=== PATIENT | male | born 1930 | race Caucasian/White ===

== ENCOUNTER 2018-02-10 15:42 | Inpatient (IN) | payer MEDICARE, BC ==
[2018-02-10] MEDS: NS 500 ML IV ×2 (16:25→18:04)
[2018-02-10 16:38] LABS: BASO % 0.5 % (0.0-1.0); EOS # 0.2 10^3/uL (0.0-0.50); EOS % 2.8 % (0.0-3.0); HEMATOCRIT 31.5 % (42.0-52.0); HEMOGLOBIN 9.9 g/dl (13.5-17.5); IMMATURE GRANULOCYTE % 0.3 % (0-3.0); LYMPH # 1.1 10^3/uL (1.5-4.5); LYMPH % 17.6 % (24.0-44.0); MEAN CORPUSCULAR HEMOGLOBIN 27.8 pg (27.0-33.0); MEAN CORPUSCULAR HGB CONC 31.4 g/dl (32.0-36.5); MEAN CORPUSCULAR VOLUME 88.5 fl (80.0-96.0); MONO # 0.4 10^3/uL (0.0-0.8); MONO % 6.4 % (0.0-5.0); NEUTROPHILS # 4.7 10^3/uL (1.8-7.7); NEUTROPHILS % 72.4 % (36.0-66.0); PLATELET COUNT, AUTOMATED 237 10^3/uL (150-450); RED BLOOD COUNT 3.56 10^6/uL (4.30-6.10); RED CELL DISTRIBUTION WIDTH 14.8 % (11.5-14.5); WHITE BLOOD COUNT 6.4 10^3/uL (4.0-10.0)
[2018-02-10 16:54] LABS: ALBUMIN 3.4 GM/DL (3.2-5.2); ALBUMIN/GLOBULIN RATIO 0.94 (1.00-1.93); ALKALINE PHOSPHATASE 62 U/L (45-117); ALT/SGPT 16 U/L (12-78); ANION GAP 5 MEQ/L (8-16); AST/SGOT 19 U/L (7-37); BILIRUBIN,DIRECT 0.1 MG/DL (0.0-0.2); BILIRUBIN,TOTAL 0.3 MG/DL (0.2-1.0); BLOOD UREA NITROGEN 24 MG/DL (7-18); CALCIUM LEVEL 8.4 MG/DL (8.8-10.2); CARBON DIOXIDE LEVEL 27 MEQ/L (21-32); CHLORIDE LEVEL 111 MEQ/L (98-107); CPK CREATINE PHOSPHOKINASE 72 U/L (39-308); CREATININE FOR GFR 0.86 MG/DL (0.70-1.30); FREE T4 0.88 NG/DL (0.76-1.46); GLOMERULAR FILTRATION RATE > 60.0 (>35); GLUCOSE, FASTING 86 MG/DL (70-100); POTASSIUM SERUM 4.5 MEQ/L (3.5-5.1); SODIUM LEVEL 143 MEQ/L (136-145); TROPONIN I < 0.02 NG/ML (< 0.10)
[2018-02-10 16:59] LABS: CK-MB VALUE MASS 1.3 NG/ML (<3.6)
[2018-02-10] MEDS ORDERED: ONDANSETRON 4MG/2ML VIAL (J2405) IV (17:45)
[2018-02-10] MEDS ORDERED: ACETAMINOPHEN TAB 650MG DOSE (2X325MG) PO (17:45)
[2018-02-10 18:18] LABS: RETIC HEMOGLOBIN EQUIVALENT 31.4 pg (24-36); RETICULOCYTE # 56.6 10^9/L (17-77); RETICULOCYTE % 1.6 % (0.5-1.5)
[2018-02-10 18:20] LABS: FERRITIN 14 NG/ML (26-388); IRON (FE) 50 UG/DL (65-175); MAGNESIUM LEVEL 2.2 MG/DL (1.8-2.4); PERCENT SATURATION 12.6 % (19.7-50.0); TOTAL IRON BINDING CAPACITY 396 UG/DL (250-450)
[2018-02-10] MEDS ORDERED: NITROGLYCERIN 0.4 MG SUBL TABLET SL (18:45)
[2018-02-10] MEDS: APIXABAN 5 MG TAB (ELIQUIS) PO (19:34)
[2018-02-10] MEDS: NS 1,000 ML IV (19:34)
[2018-02-10] MEDS: ISOSORBIDE MON. (IMDUR) 60 MG XR TAB PO (19:35)
[2018-02-10] MEDS: DOCUSATE SODIUM 100 MG CAP PO (19:35)
[2018-02-10 19:37] LABS: NT-PRO BNP 575 PG/ML (<450)
[2018-02-10 20:45] LABS: INR 1.38; PROTHROMBIN TIME 17.3 SECONDS (12.4-14.5)
[2018-02-10 20:46] LABS: PARTIAL THROMBOPLASTIN TIME 34.7 SECONDS (26.8-37.9)
[2018-02-10] MEDS: ASCORBIC ACID 250 MG TAB PO (23:21)
[2018-02-10] MEDS: BRIMONIDINE 0.15% OPHTH SOLN 5 ML OU (23:21)
[2018-02-10] MEDS: FERROUS GLUCONATE 324 MG TAB PO (23:21)
[2018-02-11 00:14] LABS: CPK CREATINE PHOSPHOKINASE 63 U/L (39-308); TROPONIN I < 0.02 NG/ML (< 0.10)
[2018-02-11 00:15] LABS: CK-MB VALUE MASS 1.1 NG/ML (<3.6); MB/CK RELATIVE INDEX 1.74 (< OR =4)
[2018-02-11 04:42] LABS: BASO % 0.6 % (0.0-1.0); EOS # 0.2 10^3/uL (0.0-0.50); EOS % 3.5 % (0.0-3.0); HEMATOCRIT 29.6 % (42.0-52.0); HEMOGLOBIN 9.3 g/dl (13.5-17.5); IMMATURE GRANULOCYTE % 0.2 % (0-3.0); MEAN CORPUSCULAR HEMOGLOBIN 28.1 pg (27.0-33.0); MEAN CORPUSCULAR HGB CONC 31.4 g/dl (32.0-36.5); MEAN CORPUSCULAR VOLUME 89.4 fl (80.0-96.0); MONO # 0.4 10^3/uL (0.0-0.8); NEUTROPHILS # 2.7 10^3/uL (1.8-7.7); NEUTROPHILS % 50.7 % (36.0-66.0); PLATELET COUNT, AUTOMATED 208 10^3/uL (150-450); RED BLOOD COUNT 3.31 10^6/uL (4.30-6.10); RED CELL DISTRIBUTION WIDTH 14.9 % (11.5-14.5); WHITE BLOOD COUNT 5.4 10^3/uL (4.0-10.0)
[2018-02-11 04:54] LABS: ANION GAP 5 MEQ/L (8-16); BLOOD UREA NITROGEN 19 MG/DL (7-18); CALCIUM LEVEL 8.3 MG/DL (8.8-10.2); CARBON DIOXIDE LEVEL 28 MEQ/L (21-32); CHLORIDE LEVEL 111 MEQ/L (98-107); CREATININE FOR GFR 0.82 MG/DL (0.70-1.30); GLOMERULAR FILTRATION RATE > 60.0 (>35); GLUCOSE, FASTING 83 MG/DL (70-100); POTASSIUM SERUM 4.5 MEQ/L (3.5-5.1); SODIUM LEVEL 144 MEQ/L (136-145)
[2018-02-11] MEDS: NS 1,000 ML IV (09:49)
[2018-02-11] MEDS: OMEPRAZOLE 20 MG CAP PO (09:50)
[2018-02-11] MEDS: ISOSORBIDE MON. (IMDUR) 60 MG XR TAB PO (09:50)
[2018-02-11] MEDS: ASCORBIC ACID 250 MG TAB PO (09:50)
[2018-02-11] MEDS: SIMVASTATIN 40 MG TAB PO (09:50)
[2018-02-11] MEDS: DOCUSATE SODIUM 100 MG CAP PO (09:50)
[2018-02-11] MEDS: ASPIRIN 81 MG ENTERIC TAB PO (09:50)
[2018-02-11] MEDS: APIXABAN 5 MG TAB (ELIQUIS) PO (09:51)
[2018-02-11] MEDS: FERROUS GLUCONATE 324 MG TAB PO (09:52)
[2018-02-11] MEDS: BRIMONIDINE 0.15% OPHTH SOLN 5 ML OU (09:52)
[2018-02-11] MEDS ORDERED: LUMIGAN 0.01% OU (21:00)
[2018-02-12 08:07] LABS: FOLATE > 24.0 NG/ML (>5.4)
[2018-02-12 08:08] LABS: VITAMIN B12 LEVEL 317 PG/ML (247-911)
== END 2018-02-11 14:40 | disposition home or self-care (01) | DRG 641 ==
LOC: M ED 15:42 → M ED INP 19:21 → M PCU 23:07
DX: E86.0 Dehydration (principal); I48.0 Paroxysmal atrial fibrillation; I10 Essential (primary) hypertension; K21.9 Gastro-esophageal reflux disease without esophagitis; I25.10 Atherosclerotic heart disease of native coronary artery without angina pectoris; R55 Syncope and collapse; D50.9 Iron deficiency anemia, unspecified; Z95.5 Presence of coronary angioplasty implant and graft; Z85.46 Personal history of malignant neoplasm of prostate; Z90.49 Acquired absence of other specified parts of digestive tract; Z86.010 Personal history of colon polyps; Z79.01 Long term (current) use of anticoagulants; Z95.0 Presence of cardiac pacemaker; Z79.02 Long term (current) use of antithrombotics/antiplatelets; Z79.82 Long term (current) use of aspirin; Z79.899 Other long term (current) drug therapy

== ENCOUNTER 2018-02-20 07:20 | Emergency (ER) | payer MEDICARE, BC ==
[2018-02-20 08:31] LABS: HEMATOCRIT 33.9 % (42.0-52.0); HEMOGLOBIN 10.9 g/dl (13.5-17.5); MEAN CORPUSCULAR HEMOGLOBIN 28.7 pg (27.0-33.0); MEAN CORPUSCULAR HGB CONC 32.2 g/dl (32.0-36.5); MEAN CORPUSCULAR VOLUME 89.2 fl (80.0-96.0); PLATELET COUNT, AUTOMATED 222 10^3/uL (150-450); RED CELL DISTRIBUTION WIDTH 15.9 % (11.5-14.5)
[2018-02-20 08:37] LABS: INR 1.18; PROTHROMBIN TIME 15.2 SECONDS (12.4-14.5)
[2018-02-20 08:38] LABS: PARTIAL THROMBOPLASTIN TIME 35.5 SECONDS (26.8-37.9)
== END 2018-02-20 09:15 | disposition home or self-care (01) ==
LOC: M ED 07:20
DX: L76.82 Other postprocedural complications of skin and subcutaneous tissue (principal); D68.32 Hemorrhagic disorder due to extrinsic circulating anticoagulants; Z79.82 Long term (current) use of aspirin; Z79.899 Other long term (current) drug therapy
CPT/HCPCS: 85610

== ENCOUNTER 2018-11-09 13:24 | Emergency (ER) | payer MEDICARE, BC ==
[~2018-11-09] VITALS: Ht 167.6 cm; Wt 180.0 kg
[~2018-11-09 13:24] MED LIST: /ISOS5TA OR; ALPH0.156 OU; ASPI81TA85 PO; BIMA01SOL OU; CEPH500C; ECOT325T5; ELIQ5TAB PO; FERR325T16 PO; ISMO20TA; ISOS60TA2 PO; LOPR50TA OR; NITR0.4S; NITR4TASL SL; OMEP40CA2 PO; PLAV75TA2; PRILOSEC; SIMV40TA2 PO; TIMO0.5S; TOPR50TA; VICO5TAB OR; VYTO10TA5; VYTORIN; XALATAN
[2018-11-09 14:03] LABS: BASO # 0.1 10^3/uL (0.0-0.2); BASO % 0.8 % (0.0-1.0); EOS # 0.1 10^3/uL (0.0-0.50); EOS % 1.3 % (0.0-3.0); HEMATOCRIT 35.4 % (42.0-52.0); LYMPH # 1.5 10^3/uL (1.5-4.5); LYMPH % 24.2 % (24.0-44.0); MEAN CORPUSCULAR HEMOGLOBIN 29.8 pg (27.0-33.0); MEAN CORPUSCULAR HGB CONC 31.1 g/dl (32.0-36.5); MEAN CORPUSCULAR VOLUME 95.9 fl (80.0-96.0); MONO # 0.6 10^3/uL (0.0-0.8); MONO % 9.6 % (0.0-5.0); NEUTROPHILS # 3.9 10^3/uL (1.8-7.7); NEUTROPHILS % 63.6 % (36.0-66.0); PLATELET COUNT, AUTOMATED 258 10^3/uL (150-450); RED BLOOD COUNT 3.69 10^6/uL (4.30-6.10); WHITE BLOOD COUNT 6.1 10^3/uL (4.0-10.0)
[2018-11-09] MEDS ORDERED: ROSU20TA4 PO (14:09)
[2018-11-09 14:14] LABS: INR 1.44; PROTHROMBIN TIME 17.8 SECONDS (12.1-14.4)
[2018-11-09 14:32] LABS: ALT/SGPT 23 U/L (12-78); BILIRUBIN,TOTAL 0.6 MG/DL (0.2-1.0); BLOOD UREA NITROGEN 23 MG/DL (7-18); CALCIUM LEVEL 8.7 MG/DL (8.8-10.2); CARBON DIOXIDE LEVEL 26 MEQ/L (21-32); CHLORIDE LEVEL 108 MEQ/L (98-107); CPK CREATINE PHOSPHOKINASE 112 U/L (39-308); CREATININE FOR GFR 0.94 MG/DL (0.70-1.30); GLOMERULAR FILTRATION RATE > 60.0 (>35); GLUCOSE, FASTING 97 MG/DL (70-100); MB/CK RELATIVE INDEX 2.05 (< OR =4); POTASSIUM SERUM 4.5 MEQ/L (3.5-5.1); SODIUM LEVEL 140 MEQ/L (136-145)
[2018-11-09 14:33] LABS: ALBUMIN 3.9 GM/DL (3.2-5.2); BILIRUBIN,DIRECT 0.2 MG/DL (0.0-0.2); NT-PRO BNP 1229 PG/ML (<450); TROPONIN I 0.02 NG/ML (< 0.10)
--- NOTE | 2018-11-09 14:59 | REP ---
CHEST X-RAY: Two views. HISTORY: Dyspnea and cough. COMPARISON STUDY: February 10, 2018. FINDINGS: The patient is status post prior median sternotomy. Bipolar pacemaker is seen in the right heart. Mild cardiomegaly is observed. There is blunting of the right lateral and both posterior pleural angles indicating small quantities of pleural fluid. There is evidence of a hiatal hernia behind the heart unchanged. No acute infiltrate is seen. Left hemidiaphragm is somewhat elevated also unchanged. IMPRESSION: Cardiomegaly, prior sternotomy and pacemaker. Small bilateral pleural effusions. Hiatal hernia. No acute infiltrate. Electronically Signed by Rafael Hamilton MD 11/09/2018 03:40 P
[2018-11-09] MEDS ORDERED: FUROSEMIDE 40 MG/4 ML VIAL (J1940) IV ONE (15:30)
[2018-11-09 17:16] VITALS: BP 142/67
[2018-11-09] MEDS ORDERED: LASI20TA3 PO (17:16)
--- NOTE | 2018-11-09 18:02 | ECGEPIP ---
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
== END 2018-11-09 17:38 | disposition home or self-care (01) ==
LOC: M ED 13:24
DX: I50.30 Unspecified diastolic (congestive) heart failure (principal); I50.9 Heart failure, unspecified; R94.31 Abnormal electrocardiogram [ECG] [EKG]; Z95.0 Presence of cardiac pacemaker; I48.91 Unspecified atrial fibrillation; I25.10 Atherosclerotic heart disease of native coronary artery without angina pectoris; E66.2 Morbid (severe) obesity with alveolar hypoventilation; Z95.5 Presence of coronary angioplasty implant and graft; Z82.3 Family history of stroke; Z82.49 Family history of ischemic heart disease and other diseases of the circulatory system; I51.7 Cardiomegaly; K44.9 Diaphragmatic hernia without obstruction or gangrene; J90 Pleural effusion, not elsewhere classified; Z79.82 Long term (current) use of aspirin; Z79.01 Long term (current) use of anticoagulants; Z79.899 Other long term (current) drug therapy
CPT/HCPCS: 71046; 80048; 80076; 82550; 82553; 83880; 84443; 84484; 85025; 85610; 93005; 93041; 94760; 96374; 99285; J1940

== ENCOUNTER 2018-12-10 10:59 | Inpatient (IN) | payer MEDICARE, BC ==
[~2018-12-10] VITALS: Ht 170.2 cm; Wt 77.3 kg
[~2018-12-10 10:59] MED LIST changes: +LASI20TA3 PO; +ROSU20TA4 PO
[2018-12-10 11:30] LABS: BASO % 0.6 % (0.0-1.0); EOS # 0.1 10^3/uL (0.0-0.50); EOS % 0.9 % (0.0-3.0); HEMATOCRIT 22.7 % (42.0-52.0); LYMPH # 1.1 10^3/uL (1.5-4.5); LYMPH % 17.7 % (24.0-44.0); MEAN CORPUSCULAR HEMOGLOBIN 28.3 pg (27.0-33.0); MEAN CORPUSCULAR HGB CONC 30.8 g/dl (32.0-36.5); MEAN CORPUSCULAR VOLUME 91.9 fl (80.0-96.0); MONO # 0.4 10^3/uL (0.0-0.8); MONO % 5.7 % (0.0-5.0); NEUTROPHILS # 4.7 10^3/uL (1.8-7.7); NEUTROPHILS % 74.8 % (36.0-66.0); PLATELET COUNT, AUTOMATED 205 10^3/uL (150-450); RED BLOOD COUNT 2.47 10^6/uL (4.30-6.10); WHITE BLOOD COUNT 6.3 10^3/uL (4.0-10.0)
[2018-12-10 11:40] LABS: ABG BASE EXCESS -0.3 (-2.0-2.0); ABG HCO3 22.7 MEQ/L (22.0-26.0); ABG O2 SATURATION 96.7 % (95.0-99.0); ABG PARTIAL PRESSURE CO2 30.9 mmHg (35.0-45.0); ABG PARTIAL PRESSURE O2 91.7 mmHg (75.0-100.0); ABG STANDARD HCO3 24.2 MEQ/L (22.0-26.0); ABG TOTAL CO2 23.7 MEQ/L (23.0-31.0); ABG pH (ARTERIAL) 7.484 UNITS (7.350-7.450)
--- NOTE | 2018-12-10 11:56 | REP ---
Chest one-view HISTORY: Cough Comparison: 11/09/2018 The lungs are clear. The cardiac silhouette is enlarged. The pulmonary vasculature is normal in appearance. A cardiac pacemaker is present. Impression: Cardiomegaly. Electronically Signed by Yonas Wang MD 12/10/2018 11:47 A
[2018-12-10 12:00] LABS: INFLUENZA A AMPLIFICATION NEGATIVE (NEGATIVE); INFLUENZA B AMPLIFICATION NEGATIVE (NEGATIVE)
--- NOTE | 2018-12-10 12:19 | REP ---
CT Head without contrast HISTORY: Syncope COMPARISON: MR 09/13/2010 Areas of decreased attenuation are present in the periventricular white matter. This represents small-vessel ischemic disease. There is no intraparenchymal hemorrhage, acute infarct, mass or midline shift. The ventricular system and cortical sulci are dilated consistent with mild volume loss. There is no extra cerebral collection. There is no fracture. The visualized sinuses are clear. Soft tissue swelling is present overlying the right parietal bone at the vertex. Surgical ari are present in the the soft tissue overlying the right parietal bone at the vertex. IMPRESSION: 1. Small vessel ischemic disease. 2. Mild volume loss. Electronically Signed by Yonas Wang MD 12/10/2018 12:10 P
[2018-12-10 12:23] LABS: ALBUMIN 3.4 GM/DL (3.2-5.2); ALT/SGPT 18 U/L (12-78); BILIRUBIN,DIRECT 0.1 MG/DL (0.0-0.2); BILIRUBIN,TOTAL 0.4 MG/DL (0.2-1.0); BLOOD UREA NITROGEN 22 MG/DL (7-18); CALCIUM LEVEL 8.3 MG/DL (8.8-10.2); CARBON DIOXIDE LEVEL 26 MEQ/L (21-32); CHLORIDE LEVEL 105 MEQ/L (98-107); CPK CREATINE PHOSPHOKINASE 136 U/L (39-308); CREATININE FOR GFR 1.05 MG/DL (0.70-1.30); GLOMERULAR FILTRATION RATE > 60.0 (>35); GLUCOSE, FASTING 140 MG/DL (70-100); MB/CK RELATIVE INDEX 1.47 (< OR =4); POTASSIUM SERUM 3.6 MEQ/L (3.5-5.1); SODIUM LEVEL 140 MEQ/L (136-145); THYROXINE (T4) 6.3 UG/DL (4.5-12.0); TOTAL PROTEIN 6.1 GM/DL (6.4-8.2); TROPONIN I 0.03 NG/ML (< 0.10)
[2018-12-10] MEDS ORDERED: VITMTA PO (13:11)
[2018-12-10] MEDS ORDERED: FURO20TA2 PO (13:11)
[2018-12-10] MEDS ORDERED: CO Q10CA PO (13:11)
[2018-12-10] MEDS ORDERED: NS 1,000 ML IV ONE (13:15)
[2018-12-10 16:11] LABS: HEMATOCRIT 24.2 % (42.0-52.0); HEMOGLOBIN 7.6 g/dl (13.5-17.5)
[2018-12-10] MEDS ORDERED: ACETAMINOPHEN TAB 650MG DOSE (2X325MG) PO PRN (16:30)
[2018-12-10] MEDS ORDERED: NITROGLYCERIN 0.4 MG SUBL TABLET SL PRN (16:30)
--- NOTE | 2018-12-10 17:08 | HPEPDOC ---
[facility] Medical History & Physical Date of Admission Dec 10, 2018 Other Provider Clive Abraham MD Attending Physician: GISELLE WEN MD History and Physical CHIEF COMPLAINT: Near syncope HISTORY OF PRESENT ILLNESS: Octavio Pennington is an 88-year-old white male with a significant cardiac history for coronary artery bypass graft, coronary artery stents x6, paroxysmal atrial fibrillation on Eliquis, hypertension, prostatic cancer status post resection, large colon polyp, status post partial colon resection, and GERD who presents to the emergency room following an episode of syncope. Patient suffered a scalp laceration 3 days ago while he was in [place]. Patient states that he was using the bathroom and attempting to change the toilet paper roll and he accidentally hits the top of his head on the corner of a granite countertop. He was brought to a nearby hospital where he received 12 ari to close his laceration. Patient returned home to [place] yesterday evening. This morning, patient stated that he felt very fatigued. Concerned, he presented to the emergency department for further evaluation and management. In the emergency department patient was afebrile. CBC indicated a hemoglobin of 7.0 and a hematocrit of 22.7. He was given 2 units of packed red blood cells. Lactic acid was 2.4, follow-up 4 hours later was 1.2. Influenza is negative. Blood cultures pending. The hospitalist team was consulted and will admit the patient for further management and observation. PAST MEDICAL HISTORY: 1. Coronary artery disease status post stents x6 and coronary artery bypass graft 2. Sick sinus syndrome status post pacemaker placement 02/03/2015, [employer] Gianluca MAYA 3. His story of prostate cancer, status post resection 4. History of GERD 5. History of glaucoma 6. Paroxysmal atrial fibrillation on Eliquis PAST SURGICAL HISTORY: 1. Coronary artery bypass graft 2. Cardiac stents x6 3. Pacemaker placement 4. Prostatectomy 5. Internal hernia repair x2 6. Appendectomy 7. Long polyp resection, partial colectomy, reanastomosis SOCIAL HISTORY: Marital status: Employment: retired Tobacco use: denies a history of smoking ETOH: Admits to occasional drinking, 1-2 beers Illicit drug use: Denied illicit drug use Other relevant social factors: Caffeine use daily FAMILY HISTORY: Father: , stroke and heart disease Siblings: Brother, , heart disease. Sister, , colon cancer. ALLERGIES: Please see below. REVIEW OF SYSTEMS: CONSTITUTIONAL: Complains of 2 day history of fatigue. Denies fevers, chills, night sweats, trouble sleeping, weight changes. HEENT: Complains of dull, aching pain around his head laceration. Denies other headaches, changes in vision, ear pain. CARDIOVASCULAR: Complains of occasional palpitations. Denies chest pain/pressur e. RESPIRATORY: Denies being short of breath, coughing, wheezing GASTROINTESTINAL: Denies N/V, abdominal pain, reflux, diarrhea, constipation, blood in stools GENITOURINARY: Denies difficulty with urination SKIN: Denies new or changing skin lesions. MUSCULOSKELETAL: Denies muscle aches or pains NEUROLOGICAL: Denies focal deficits, weakness, numbness or tingling PSYCHIATRIC: Denies depressive/anxious symptoms HOME MEDICATIONS: Please see below. PHYSICAL EXAMINATION: VITAL SIGNS: Temperature 98.1, pulse 67, respiratory rate 18, blood pressure 144/65, pulse oximetry 97% on room air. GENERAL APPEARANCE: Alert and oriented to person, place and time, able to participate in his care. HEENT: 7 cm laceration noted on the patient's crown, 12 ari counted. Otherwise nontraumatic nonicteric pupils are equal round reactive to light, EOMI CARDIOVASCULAR: Regular rate and rhythm, PVCs noted on monitor. Normal S1 and S2. No murmurs LUNGS: Clear to auscultation bilaterally ABDOMEN: Nontender, soft, no masses MUSCULOSKELETAL: Moves extremities equally, strength 5 out of 5 EXTREMITIES: Peripheral pulses 2+ in both upper and lower extremities, no cyanosis NEUROLOGICAL: No facial weakness, dysarthria, muscle weakness, focal neurologic deficits PSYCHIATRIC: Mood and affect appropriate LABORATORY DATA: See below. IMAGING: CXR: Cardiomegaly noted Head CT: Small vessel ischemic disease, mild volume loss MICROBIOLOGY: Please see below. ASSESSMENT: 87-year-old male with multiple comorbidities, presents with symptomatic anemia status post scalp laceration 2 days ago. 1. Symptomatically anemia - Head CT was negative for any acute disease. Patient's vitals are stable. Fecal occult was negative. Patient to receive 2 units of packed red blood cells. - H&H every 8 hours. - Monitor for symptomatic improvement. - Hold patient's home eliquis, aspirin and isosorbide. - Continue Lasix 20 mg by mouth daily 2. Paroxysmal atrial fibrillation - Hold patient's home eliquis 3. Coronary artery disease - Continue on home statin 4. Hyperlipidemia - Continue patient's home rosuvastatin 20 mg 5. Sinus syndrome status post pacemaker 7. GERD - Continue on home omeprazole 40 mg DVT prophylaxis: TEDs and Sequentials Vital Signs Vital Signs Date Time Temp Pulse Resp B/P (MAP) Pulse Ox O2 Delivery O2 Flow Rate FiO2 12/10/18 16:15 68 18 131/65 (87) 93 Room Air 12/10/18 11:09 98.1 Laboratory Data Labs 24H Laboratory Tests 2 12/10/18 11:17: Immature Granulocyte % (Auto) 0.3, White Blood Count 6.3, Red Blood Count 2.47L, Hemoglobin 7.0L, Hematocrit 22.7L, Mean Corpuscular Volume 91.9, Mean Corpuscular Hemoglobin 28.3, Mean Corpuscular Hemoglobin Concent 30.8L, Red Cell Distribution Width 13.7, Platelet Count 205, Neutrophils (%) (Auto) 74.8H, Lymphocytes (%) (Auto) 17.7L, Monocytes (%) (Auto) 5.7H, Eosinophils (%) (Auto) 0.9, Basophils (%) (Auto) 0.6, Neutrophils # (Auto) 4.7, Lymphocytes # (Auto) 1.1L, Monocytes # (Auto) 0.4, Eosinophils # (Auto) 0.1, Basophils # (Auto) 0.0, Nucleated Red Blood Cells % (auto) 0.0, Anion Gap 9, Glomerular Filtration Rate > 60.0, Lactic Acid Level 2.4*H, Calcium Level 8.3L, Aspartate Amino Transf (AST/SGOT) 20, Alanine Aminotransferase (ALT/SGPT) 18, Alkaline Phosphatase 61, Total Bilirubin 0.4, Direct Bilirubin 0.1, Total Creatine Kinase 136, Creatine Kinase MB 2.0, Creatine Kinase MB Relative Index 1.47, Troponin I 0.03, Total Protein 6.1L, Albumin 3.4, Albumin/Globulin Ratio 1.26, Thyroid Stimulating Hormone (TSH) 1.470, Thyroxine (T4) 6.3 12/10/18 11:23: Influenza Type A (RT-PCR) NEGATIVE, Influenza Type B (RT-PCR) NEGATIVE 12/10/18 11:25: Blood Gas Bicarbonate Standard 24.2, Arterial Blood pH 7.484H, Arterial Blood Partial Pressure CO2 30.9L, Arterial Blood Partial Pressure O2 91.7, Arterial Blood Total CO2 23.7, Arterial Blood HCO3 22.7, Arterial Blood Base Excess -0.3, Arterial Blood Oxygen Saturation 96.7 12/10/18 15:58: Lactic Acid Followup at 4 Hours 1.2 CBC/BMP Laboratory Tests 12/10/18 11:17 Red Blood Count 2.47 L, Mean Corpuscular Volume 91.9, Mean Corpuscular Hemoglobin 28.3, Mean Corpuscular Hemoglobin Concent 30.8 L, Red Cell Distribution Width 13.7, Neutrophils (%) (Auto) 74.8 H, Lymphocytes (%) (Auto) 17.7 L, Monocytes (%) (Auto) 5.7 H, Eosinophils (%) (Auto) 0.9, Basophils (%) (Auto) 0.6, Neutrophils # (Auto) 4.7, Lymphocytes # (Auto) 1.1 L, Monocytes # (Auto) 0.4, Eosinophils # (Auto) 0.1, Basophils # (Auto) 0.0 12/10/18 15:58 Microbiology Microbiology 12/10/18 Blood Culture, Received Pending 12/10/18 Blood Culture, Received Pending Home Medications Scheduled Apixaban Base (Eliquis) 5 Mg Tab, 5 MG PO BID Aspirin (Aspir-81) 81 Mg Tab, 81 MG PO DAILY Bimatoprost (Lumigan) 50 Drop/2.5 Ml Dipika, 1 DROP OU QHS Brimonidine Tartrate 0.15% (Alphagan P) 0.15 % Dipika, 1 DROP OU TID Coenzyme Q10 (Co Q 10) 10 Mg Cap, 10 MG PO QHS Furosemide (Furosemide) 20 Mg Tab, 20 MG PO DAILY Isosorbide Mononitrate (Isosorbide Mononitrate ER) 60 Mg Tab, 60 MG PO BID Multivitamins *[facility] STOCKED* (Thera M Plus *[facility] STOCKED*) 1 Tab Tab, 1 TAB PO DAILY Omeprazole (Omeprazole) 40 Mg Cap, 40 MG PO DAILY Rosuvastatin Calcium (Rosuvastatin Calcium) 20 Mg Tab, 20 MG PO DAILY Scheduled PRN Nitroglycerin (Nitrostat) 0.4 Mg Subl, 0.4 MG SL NITRO PRN for CHEST PAIN Allergies Coded Allergies: No Known Allergies (Verified , 09/30/06) GME ATTESTATION GME ATTESTATION My faculty preceptor for this patient encounter was physically present during the encounter and was fully available. All aspects of the patient interview, exa mination, medical decision making process, and medical care plan development were reviewed and approved by the faculty preceptor. The faculty preceptor is aware and concurs with the plan as stated in the body of this note and will attest to such by his/her cosignature. GME ATTESTATION GME ATTESTATION My faculty preceptor for this patient encounter was physically present during the encounter and was fully available. All aspects of the patient interview, examination, medical decision making process, and medical care plan development were reviewed and approved by the faculty preceptor. The faculty preceptor is aware and concurs with the plan as stated in the body of this note and will attest to such by his/her cosignature. WILLIAM SPRING DO Dec 10, 2018 17:08
[2018-12-10] MEDS ORDERED: APIXABAN 5 MG TAB (ELIQUIS) PO SCH (21:00)
[2018-12-10] MEDS ORDERED: ISOSORBIDE MON. (IMDUR) 60 MG XR TAB PO SCH (21:00)
[2018-12-10 22:00] VITALS: BP 119/74
--- NOTE | 2018-12-10 22:00 | ECGEPIP ---
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
[2018-12-10] MEDS: BRIMONIDINE 0.15% OPHTH SOLN 5 ML OU SCH (22:04)
[2018-12-10 22:22] LABS: HEMATOCRIT 25.3 % (42.0-52.0)
[2018-12-11 06:00] VITALS: BP 160/74
[2018-12-11 06:03] LABS: HEMATOCRIT 26.1 % (42.0-52.0); HEMOGLOBIN 8.2 g/dl (13.5-17.5)
[2018-12-11] MEDS ORDERED: ASPIRIN 81 MG ENTERIC TAB PO SCH (09:00)
[2018-12-11] MEDS: ROSUVASTATIN 10 MG TAB (CRESTOR) PO SCH (09:13)
[2018-12-11] MEDS: OMEPRAZOLE 20 MG CAP PO SCH (09:13)
[2018-12-11] MEDS: MULTIVITAMINS/MINERALS THERAP 1 TAB PO SCH (09:13)
[2018-12-11] MEDS: BRIMONIDINE 0.15% OPHTH SOLN 5 ML OU SCH ×3 (09:14→20:54)
[2018-12-11] MEDS: FUROSEMIDE 20 MG TAB PO SCH (09:14)
--- NOTE | 2018-12-11 10:30 | IPNPDOC ---
Text Note Date of Service The patient was seen on 12/11/18. NOTE Subjective: Vision was interviewed and examined at bedside this morning. He reports difficulty sleeping last night due to hospital conditions. He denies any acute complaints. He has been up and out of bed in order to use the bathroom. He says that he is not felt dizzy and reports subjective improvement in his overall energy level compared to his initial presentation yesterday. Denies any syncopal episodes or dyspnea. He denies chest pain/pressure. He does report occasional palpitations (has been normal for him). Patient reports his last cardiac surgery was a number of years ago in which case he had cardiac displaced. He is moving his bowels and urinating without difficulty. No blood in his stool. He denies any leg pain or swelling. Objective: Vitals: (see below) GENERAL: No acute distress, laying comfortably in bed, alert and oriented, able to participate in his care HEENT: Scalp laceration with 12 ari noted. Wound is well approximated, no signs of infection, no bleeding or drainage. PERRLA, EOMI, no conjunctival pallor, moist mucous membranes. NECK: No JVD or lymphadenopathy CARDIAC: Regular rate with occasional PVCs. Normal S1-S2, systolic murmur 2/6 appreciated at fourth intercostal space on the left, no radiation. PULM: Clear to auscultation b/l. No wheezing, rhonchi ABD: NT/ND + BS MSK: Moves all extremities equally EXTREMITIES: No lower extremity edema or cyanosis. Cap refill less than 2 seconds NEURO: No facial droop or asymmetry, no neurologic deficits Labs (see below) Hgb/Hct at presentation (12/10/18): 7/22.7 Hgb/Hct (12/11/18): 8.2/26.1 Images: Head CT (12/10/18): Small vessel ischemic disease and Mild volume loss. CXR: (12/10/18): Cardiomegaly Assessment/Plan Mr. Pennington is an 88-year-old gentleman who reportedly suffered a head laceration with large volume blood loss 12/08/18. He presented to the emergency department after an episode of dizziness in his home. He has a past medical history significant for CAD S/P6 stent placement and coronary artery bypass graft, atrial fibrillation with pacemaker placed in 2014, prostate cancer S/P resection, and paroxysmal atrial fibrillation to coagulate with aliquots 1. Symptomatic anemia -Patient reports subjective resolution of his dizziness and fatigue. Head CT was negative for intracranial bleed. Patient was transfused 2 units of packed red blood cells, H&H brought up from 04/22.7 to 8.2/26.1. -Will resume aspirin and Eliquis -Patient is being continued on home Lasix 20 mg by mouth dose -Trend H/H every 12 hours 2. Paroxysmal atrial fibrillation -Will resume patient's home dose of Eliquis and aspirin 3. Coronary artery disease and history of hyperlipidemia -Patient is receiving his home rosuvastatin 20 mg 4. Sick sinus syndrome S/P pacemaker placement 5. GERD -She has continued on his home dose of omeprazole 40 mg DVT prophy: TEDs and Sequentials Disp: Plan to discharge following 24 hours of stable H/H s/p re-start eliquis VS,Fishbone, I+O VS, Fishbone, I+O Laboratory Tests 12/10/18 11:17 Red Blood Count 2.47 L, Mean Corpuscular Volume 91.9, Mean Corpuscular Hemoglobin 28.3, Mean Corpuscular Hemoglobin Concent 30.8 L, Red Cell Distribution Width 13.7, Neutrophils (%) (Auto) 74.8 H, Lymphocytes (%) (Auto) 17.7 L, Monocytes (%) (Auto) 5.7 H, Eosinophils (%) (Auto) 0.9, Basophils (%) (Auto) 0.6, Neutrophils # (Auto) 4.7, Lymphocytes # (Auto) 1.1 L, Monocytes # (Auto) 0.4, Eosinophils # (Auto) 0.1, Basophils # (Auto) 0.0 12/10/18 15:58 12/10/18 22:13 12/11/18 05:24 Vital Signs Date Time Temp Pulse Resp B/P (MAP) Pulse Ox O2 Delivery O2 Flow Rate FiO2 12/11/18 06:00 98.1 83 18 160/74 (102) 100 12/10/18 16:15 Room Air I&O- Last 24 Hours up to 6 AM 12/11/18 06:00 Intake Total 1265 ml Balance 1265 ml GME ATTESTATION GME ATTESTATION My faculty preceptor for this patient encounter was physically present during the encounter and was fully available. All aspects of the patient interview, examination, medical decision making process, and medical care plan development were reviewed and approved by the faculty preceptor. The faculty preceptor is aware and concurs with the plan as stated in the body of this note and will attest to such by his/her cosignature. ATTENDING NOTE I, Nolan Pedraza, have both independently examined this patient as well as revie wed the documentation. I have discussed in detail with the resident the findings and plan of treatment as documented in the residents documentation. I will continue to follow the patient and offer further guidance to the patients care as necessary during this hospital stay. WILLIAM SPRING DO Dec 11, 2018 10:30 NOLAN PEDRAZA MD Dec 11, 2018 18:51
[2018-12-11] MEDS: APIXABAN 5 MG TAB (ELIQUIS) PO SCH ×2 (12:14→20:52)
[2018-12-11] MEDS: ASPIRIN 81 MG ENTERIC TAB PO SCH (12:14)
[2018-12-11 14:00] VITALS: BP 137/61
[2018-12-11 19:26] LABS: HEMATOCRIT 29.6 % (42.0-52.0); HEMOGLOBIN 9.3 g/dl (13.5-17.5)
[2018-12-11 22:00] VITALS: BP 134/70
[2018-12-12 06:00] VITALS: BP 136/66
[2018-12-12 08:26] LABS: BASO % 0.6 % (0.0-1.0); EOS # 0.1 10^3/uL (0.0-0.50); EOS % 2.2 % (0.0-3.0); HEMATOCRIT 28.1 % (42.0-52.0); LYMPH # 1.5 10^3/uL (1.5-4.5); LYMPH % 28.6 % (24.0-44.0); MEAN CORPUSCULAR HEMOGLOBIN 29.2 pg (27.0-33.0); MEAN CORPUSCULAR VOLUME 91.2 fl (80.0-96.0); MONO # 0.4 10^3/uL (0.0-0.8); MONO % 7.8 % (0.0-5.0); NEUTROPHILS # 3.3 10^3/uL (1.8-7.7); NEUTROPHILS % 60.6 % (36.0-66.0); PLATELET COUNT, AUTOMATED 209 10^3/uL (150-450); RED BLOOD COUNT 3.08 10^6/uL (4.30-6.10); WHITE BLOOD COUNT 5.4 10^3/uL (4.0-10.0)
[2018-12-12 08:49] LABS: ALBUMIN 3.1 GM/DL (3.2-5.2); ALT/SGPT 14 U/L (12-78); BILIRUBIN,TOTAL 0.4 MG/DL (0.2-1.0); BLOOD UREA NITROGEN 21 MG/DL (7-18); CALCIUM LEVEL 8.5 MG/DL (8.8-10.2); CARBON DIOXIDE LEVEL 28 MEQ/L (21-32); CHLORIDE LEVEL 108 MEQ/L (98-107); CREATININE FOR GFR 0.87 MG/DL (0.70-1.30); GLOMERULAR FILTRATION RATE > 60.0 (>35); GLUCOSE, FASTING 94 MG/DL (70-100); MAGNESIUM LEVEL 2.2 MG/DL (1.8-2.4); POTASSIUM SERUM 3.8 MEQ/L (3.5-5.1); SODIUM LEVEL 141 MEQ/L (136-145); TOTAL PROTEIN 6.3 GM/DL (6.4-8.2)
[2018-12-12] MEDS: ASPIRIN 81 MG ENTERIC TAB PO SCH (08:54)
[2018-12-12] MEDS: BRIMONIDINE 0.15% OPHTH SOLN 5 ML OU SCH (08:54)
[2018-12-12] MEDS: FUROSEMIDE 20 MG TAB PO SCH (08:54)
[2018-12-12] MEDS: APIXABAN 5 MG TAB (ELIQUIS) PO SCH (08:54)
[2018-12-12] MEDS: OMEPRAZOLE 20 MG CAP PO SCH (08:54)
[2018-12-12] MEDS: ROSUVASTATIN 10 MG TAB (CRESTOR) PO SCH (08:54)
[2018-12-12] MEDS: MULTIVITAMINS/MINERALS THERAP 1 TAB PO SCH (08:54)
--- NOTE | 2018-12-12 17:43 | DS.PDOC ---
Discharge Summary General Date of Admission Dec 10, 2018 at 14:33 Date of Discharge 12/12/2018 Discharge Summary PROCEDURES PERFORMED DURING STAY: [None]. ADMITTING DIAGNOSES / DISCHARGE DIAGNOSES: Symptomatic anemia - likely 2/2 acute blood loss anemia - likely 2/2 head trauma / laceration after hitting granite countertop Head laceration after hitting granite countertop Paroxysmal atrial fibrillation Coronary artery disease / DLP SSS s/p PM GERD DVT prophylaxis COMPLICATIONS/CHIEF COMPLAINT: Dizziness / Light-headedness HISTORY OF PRESENT ILLNESS: Mr. Pennington is an 88-year-old gentleman with a PMHx of Paroxysmal A. fib (on Eliquis), CAD, DLP, SSS s/p PM and GERD who reportedly suffered a head laceration with large volume blood loss 12/08/18. He presented to the emergency department after an episode of dizziness in his home. He has a past medical history significant for CAD S/P6 stent placement and coronary artery bypass graft, atrial fibrillation with pacemaker placed in 2014, prostate cancer S/P resection, and paroxysmal atrial fibrillation to coagulate with aliquots HOSPITAL COURSE: Symptomatic anemia - likely 2/2 acute blood loss anemia - likely 2/2 head trauma / laceration after hitting granite countertop - Currently has had resolution of his symptoms - Physical without any significant findings - No evidence of gross bleeding on physical exam - Hemoglobin has improved appropriately after transfusion and has remained stable - Has been resumed on aspirin and Eliquis - Will have outpatient provider follow-up with primary care provider Head laceration after hitting granite countertop - Patient with that this has occurred on Monday of last week; he visited the [facility] room in [place] - Received 12 ari to the area; he was controlled - Had indicated that he had lost a significant amount of blood at that time - Will have outpatient follow-up with primary care provider for staple removal Paroxysmal atrial fibrillation - c/w Eliquis and ASA Coronary artery disease / DLP - c/w rosuvastatin SSS s/p PM GERD - c/w Omeprazole DVT prophylaxis - c/w SCDs / Eliquis DISCHARGE MEDICATIONS: Please see below. ALLERGIES: Please see below. PHYSICAL EXAMINATION ON DISCHARGE: Vitals (See below) General: Lying in bed, no acute distress, comfortable, AAOx3 HEENT: Laceration with 12 ari; no evidence of acute bleeding CVS: RRR, +S1S2 Lungs: Fair air entry b/l, no evidence of wheezing / rhonchi / rales Abdomen: Soft, non-distended, non-tender Extremities: - Edema, - Calf tenderness LABORATORY DATA: Please see below. ACTIVITY: [As tolerated]. DISCHARGE PLAN: Follow up with Dr. Gianfranco Abraham within 7 day Remain compliant with treatment plan and medications Return to the ER if you experience any problems DISPOSITION: Home DISCHARGE CONDITION: [Stable]. TIME SPENT ON DISCHARGE: Greater than [35] minutes. Vital Signs/I&Os Vital Signs Date Time Temp Pulse Resp B/P (MAP) Pulse Ox O2 Delivery O2 Flow Rate FiO2 12/12/18 06:00 97.9 64 18 136/66 (89) 92 12/10/18 16:15 Room Air I&O- Last 24 Hours up to 6 AM 12/12/18 06:00 Intake Total 900 ml Balance 900 ml Laboratory Data Labs 24H Laboratory Tests 2 12/12/18 07:31: Immature Granulocyte % (Auto) 0.2, White Blood Count 5.4, Red Blood Count 3.08L, Hemoglobin 9.0L, Hematocrit 28.1L, Mean Corpuscular Volume 91.2, Mean Corpuscular Hemoglobin 29.2, Mean Corpuscular Hemoglobin Concent 32.0, Red Cell Distribution Width 14.0, Platelet Count 209, Neutrophils (%) (Auto) 60.6, Lymphocytes (%) (Auto) 28.6, Monocytes (%) (Auto) 7.8H, Eosinophils (%) (Auto) 2.2, Basophils (%) (Auto) 0.6, Neutrophils # (Auto) 3.3, Lymphocytes # (Auto) 1.5, Monocytes # (Auto) 0.4, Eosinophils # (Auto) 0.1, Basophils # (Auto) 0.0, Nucleated Red Blood Cells % (auto) 0.0, Anion Gap 5L, Glomerular Filtration Rate > 60.0, Blood Urea Nitrogen 21H, Creatinine 0.87, Sodium Level 141, Potassium Level 3.8, Chloride Level 108H, Carbon Dioxide Level 28, Calcium Level 8.5L, Aspartate Amino Transf (AST/SGOT) 17, Alanine Aminotransferase (ALT/SGPT) 14, Alkaline Phosphatase 60, Total Bilirubin 0.4, Total Protein 6.3L, Albumin 3.1L, Magnesium Level 2.2, Albumin/Globulin Ratio 0.97L CBC/BMP Laboratory Tests 12/11/18 19:03 12/12/18 07:31 Red Blood Count 3.08 L, Mean Corpuscular Volume 91.2, Mean Corpuscular Hemoglobin 29.2, Mean Corpuscular Hemoglobin Concent 32.0, Red Cell Distribution Width 14.0, Neutrophils (%) (Auto) 60.6, Lymphocytes (%) (Auto) 28.6, Monocytes (%) (Auto) 7.8 H, Eosinophils (%) (Auto) 2.2, Basophils (%) (Auto) 0.6, Neutrophils # (Auto) 3.3, Lymphocytes # (Auto) 1.5, Monocytes # (Auto) 0.4, Eosinophils # (Auto) 0.1, Basophils # (Auto) 0.0, Calcium Level 8.5 L, Aspartate Amino Transf (AST/SGOT) 17, Alanine Aminotransferase (ALT/SGPT) 14, Alkaline Phosphatase 60, Total Bilirubin 0.4, Total Protein 6.3 L, Albumin 3.1 L Microbiology Microbiology 12/10/18 Blood Culture - Preliminary, Resulted No Growth after 48 hours. All Specime... 12/10/18 Blood Culture - Preliminary, Resulted No Growth after 48 hours. All Specime... Discharge Medications Scheduled Apixaban Base (Eliquis) 5 Mg Tab, 5 MG PO BID, (Reported) Aspirin (Aspir-81) 81 Mg Tab, 81 MG PO DAILY, (Reported) Bimatoprost (Lumigan) 50 Drop/2.5 Ml Dipika, 1 DROP OU QHS, (Reported) Brimonidine Tartrate 0.15% (Alphagan P) 0.15 % Dipika, 1 DROP OU TID, (Reported) Coenzyme Q10 (Co Q 10) 10 Mg Cap, 10 MG PO QHS, (Reported) Furosemide (Furosemide) 20 Mg Tab, 20 MG PO DAILY, (Reported) Isosorbide Mononitrate (Isosorbide Mononitrate ER) 60 Mg Tab, 60 MG PO BID, (Reported) Multivitamins *[facility] STOCKED* (Thera M Plus *[facility] STOCKED*) 1 Tab Tab, 1 TAB PO DAILY, (Reported) Omeprazole (Omeprazole) 40 Mg Cap, 40 MG PO DAILY, (Reported) Rosuvastatin Calcium (Rosuvastatin Calcium) 20 Mg Tab, 20 MG PO DAILY, (Reported) Scheduled PRN Nitroglycerin (Nitrostat) 0.4 Mg Subl, 0.4 MG SL NITRO PRN for CHEST PAIN, (Reported) Allergies Coded Allergies: No Known Allergies (Verified , 09/30/06) NOLAN PEDRAZA MD Dec 12, 2018 17:43
== END 2018-12-12 12:26 | disposition home or self-care (01) | DRG 812 ==
LOC: M ED 10:59 → M ED INP 14:33 → M MSPAV 16:30
PROVIDERS: ADMIT Internal Medicine; ATTEND Internal Medicine
PROC: 30233N1 Transfusion of Nonautologous Red Blood Cells into Peripheral Vein, Percutaneous Approach (ICD-10-PCS; principal; 2018-12-10)
DX: D62 Acute posthemorrhagic anemia (principal); I48.0 Paroxysmal atrial fibrillation; I10 Essential (primary) hypertension; I25.10 Atherosclerotic heart disease of native coronary artery without angina pectoris; K21.9 Gastro-esophageal reflux disease without esophagitis; Z95.5 Presence of coronary angioplasty implant and graft; Z85.46 Personal history of malignant neoplasm of prostate; Z90.49 Acquired absence of other specified parts of digestive tract; Z95.0 Presence of cardiac pacemaker; Z79.01 Long term (current) use of anticoagulants; S01.01XD Laceration without foreign body of scalp, subsequent encounter; W22.09XD Striking against other stationary object, subsequent encounter; Y92.002 Bathroom of unspecified non-institutional (private) residence as the place of occurrence of the external cause

== ENCOUNTER → 2019-01-24 | Outpatient (REF) | payer MEDICARE, BC ==
[~2019-01-24] MED LIST changes: -/ISOS5TA OR; +CO Q10CA PO; +FURO20TA2 PO; +ISOS1TAB21 OR; +METO-743; -TOPR50TA; +VITMTA PO
[2019-01-24 14:45] LABS: CHOLESTEROL RISK RATIO 2.439 (<5); LDL CHOLESTEROL 45.6 MG/DL (<100)
== END ==
LOC: M LABDRAW1 11:39
PROVIDERS: ATTEND Physician Assistant
DX: I25.10 Atherosclerotic heart disease of native coronary artery without angina pectoris (principal); E78.2 Mixed hyperlipidemia

== ENCOUNTER → 2019-04-10 | Outpatient (CLI) | payer MEDICARE, BC ==
[~2019-04-10] MED LIST changes: -ROSU20TA4 PO; +ROSU20TA5 PO
--- NOTE | 2019-04-10 12:34 | REP ---
CT RIGHT HIP WITHOUT CONTRAST: HISTORY: Pain in the right hip. Comparison is made with imaging from CT abdomen and pelvis done March 13, 2009. CT FINDINGS: Digital preliminary electromechanical engineer view demonstrates advanced osteoarthritis of the right hip and moderate osteoarthritis of the left hip. There are degenerative disc changes at L4-5. Vascular calcification is noted. Axial and multiplanar re-formation images of the right hip demonstrate a small vacuum phenomenon. The superior, weightbearing surface of the right hip joint space is obliterated. There is extensive subcortical cyst formation on both sides of the articulation predominately superiorly. The largest of these is a posterosuperior acetabular cyst measuring 1.9 cm. There is a large posterior acetabular spur which is irregular in shape. Sclerosis is seen on both sides of the joint. The largest femoral head cyst measures 10 mm. There is well established marginal osteophyte formation of the femoral head as well. No observable femoral head flattening or collapse. Fairly extensive vascular calcification is noted. Periarticular soft tissues are otherwise unremarkable. IMPRESSION: Severe right hip are as osteoarthritis. There has been considerable progression since the 2008 study. Electronically Signed by Rafael Hamilton MD 04/10/2019 01:43 P
== END ==
LOC: M RAD 09:08
PROVIDERS: ATTEND Orthopaedic Surgery
DX: M25.551 Pain in right hip (principal); M16.11 Unilateral primary osteoarthritis, right hip

== ENCOUNTER → 2019-12-04 | Outpatient (CLI) | payer MEDICARE, BC ==
[~2019-12-04] MED LIST changes: -OMEP40CA2 PO; +OMEP40CA97 PO; -SIMV40TA2 PO; +SIMV40TA20 PO
[2019-12-04 10:01] LABS: HEMATOCRIT 40.7 % (42.0-52.0); HEMOGLOBIN 13.4 g/dl (13.5-17.5); MEAN CORPUSCULAR HEMOGLOBIN 32.9 pg (27.0-33.0); MEAN CORPUSCULAR HGB CONC 32.9 g/dl (32.0-36.5); PLATELET COUNT, AUTOMATED 196 10^3/uL (150-450); RED BLOOD COUNT 4.07 10^6/uL (4.30-6.10); WHITE BLOOD COUNT 5.1 10^3/uL (4.0-10.0)
[2019-12-04 10:12] LABS: INR 1.62
--- NOTE | 2019-12-04 10:15 | REP ---
CHEST, TWO VIEWS: Two views of the chest are performed and compared to prior studies, most recently 12/10/2018. There is no acute infiltrate. Heart is upper limits of normal in size. There is calcification and tortuosity of the thoracic aorta. There is a large hiatal hernia. There is a left dual-lead pacemaker. Multiple sternal wires and mediastinal clips are present. There are moderate diffuse degenerative changes of the spine. IMPRESSION: No acute pulmonary disease. Electronically Signed by Juan Manuel Herrmann MD 12/04/2019 03:56 P
[2019-12-04 10:36] LABS: ALBUMIN 3.7 GM/DL (3.2-5.2); ALT/SGPT 24 U/L (12-78); BILIRUBIN,TOTAL 0.5 MG/DL (0.2-1.0); BLOOD UREA NITROGEN 22 MG/DL (7-18); CALCIUM LEVEL 8.7 MG/DL (8.8-10.2); CARBON DIOXIDE LEVEL 30 MEQ/L (21-32); CHLORIDE LEVEL 106 MEQ/L (98-107); CREATININE FOR GFR 1.01 MG/DL (0.70-1.30); GLOMERULAR FILTRATION RATE > 60.0 (>35); GLUCOSE, FASTING 187 MG/DL (70-100); SODIUM LEVEL 142 MEQ/L (136-145); TOTAL PROTEIN 6.5 GM/DL (6.4-8.2)
[2019-12-04 10:41] LABS: ERYTHROCYTE SEDIMENTATION RATE 32 mm/hr (0-20)
--- NOTE | 2019-12-06 14:33 | ECGEPIP ---
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
== END ==
LOC: M LAB 09:33
PROVIDERS: ATTEND Orthopaedic Surgery
DX: M16.11 Unilateral primary osteoarthritis, right hip (principal); Z79.01 Long term (current) use of anticoagulants

== ENCOUNTER → 2020-03-13 | Outpatient (CLI) | payer MEDICARE, BC ==
[~2020-03-13] MED LIST changes: +PERC5TAB12 PO; +TRAM1CAP15 PO
--- NOTE | 2020-03-13 16:50 | HPE ---
DATE OF ADMISSION: 03/16/2020 ATTENDING PHYSICIAN: Dr. Alex Rincon HISTORY: This is a pleasant 89-year-old male patient with progressively worsening right hip pain and stiffness that has failed to improve with conservative management. He has been elected for surgical management for his ongoing symptoms and has been consented for a right total hip arthroplasty by Dr. Alex Rincon. ALLERGIES: No known drug allergies. CURRENT MEDICATIONS: - Eliquis 5 mg one by mouth daily - aspirin 80 mg one by mouth daily - multivitamin one by mouth daily - Q10 one by mouth daily - isosorbide 60 mg two tablets by mouth daily - Lumigan 0.01 - brimonidine 0.15 - Nitrostat as needed - rosuvastatin 20 mg one by mouth daily - furosemide 20 mg one by mouth daily - ferrous sulfate 324 mg two by mouth daily - omeprazole 20 mg one by mouth daily PAST MEDICAL HISTORY: 1. Heart disease. 2. Atrial fibrillation. 3. Hypertension. 4. Hyperlipidemia. PAST SURGICAL HISTORY: 1. Open heart surgery. 2. Pacemaker. 3. Appendectomy. 4. Colectomy. 5. Prostatectomy. 6. Hernia repair. FAMILY HISTORY: Father , heart disease. Mother , old age, in her 80s SOCIAL HISTORY: The patient no longer drinks alcohol and quit smoking in the . REVIEW OF SYSTEMS: Denies fever, chills, chest pain, shortness breath, nausea, vomiting, diarrhea. Denies any recent upper respiratory or urinary tract infection symptoms. PHYSICAL EXAMINATION: Height 66, weight 170, temperature 97.2, blood pressure 134/74, pulse 68, respirations 17. He is normocephalic, atraumatic. Neck is supple, nontender with no lymphadenopathy or jugular venous distention (JVD). Lungs clear to auscultation bilaterally. S1, S2 auscultated. Abdomen soft, nontender. Right lower extremity is well perfused with irritability throughout hip motion. Overlying skin is intact. Labs from 12/04/2019: White count 5.1, red count 4.07, hemoglobin 13.4, hematocrit 40.7, ESR 32. BUN 22, creatinine 1.01. PT 19, INR 1.62. Chest x-ray with no acute cardiopulmonary disease. EKG with ventricular pacemaker, ventricular ectopy, baseline artifact versus atrial flutter Updated medical optimization and cardiac clearance were performed per the patient this past week but are unavailable for review on the chart today. IMPRESSION: Right hip symptomatic degenerative changes. PLAN: Consented for right total hip arthroplasty, pending updated labs, chest x-ray, EKG, and clearances as required by [facility]. The patient will discontinue his Eliquis 48 hours before surgery and has stopped his aspirin earlier this week.
== END ==
LOC: M LABSMTC 10:18
PROVIDERS: ATTEND Anesthesiology
DX: Z01.818 Encounter for other preprocedural examination (principal); Z11.59 Encounter for screening for other viral diseases

== ENCOUNTER → 2020-03-13 | Outpatient (CLI) | payer MEDICARE, BC ==
[2020-03-13 10:11] LABS: HEMATOCRIT 38.9 % (42.0-52.0); HEMOGLOBIN 12.7 g/dl (13.5-17.5); MEAN CORPUSCULAR HEMOGLOBIN 32.6 pg (27.0-33.0); MEAN CORPUSCULAR HGB CONC 32.6 g/dl (32.0-36.5); MEAN CORPUSCULAR VOLUME 99.7 fl (80.0-96.0); PLATELET COUNT, AUTOMATED 207 10^3/uL (150-450); WHITE BLOOD COUNT 5.9 10^3/uL (4.0-10.0)
[2020-03-13 10:24] LABS: INR 1.55; PROTHROMBIN TIME 18.3 SECONDS (11.8-14.0)
[2020-03-13 10:32] LABS: ALBUMIN 3.6 GM/DL (3.2-5.2); ALT/SGPT 30 U/L (12-78); BILIRUBIN,TOTAL 0.5 MG/DL (0.2-1.0); BLOOD UREA NITROGEN 22 MG/DL (7-18); CALCIUM LEVEL 8.7 MG/DL (8.8-10.2); CARBON DIOXIDE LEVEL 28 MEQ/L (21-32); CHLORIDE LEVEL 106 MEQ/L (98-107); CREATININE FOR GFR 0.98 MG/DL (0.70-1.30); GLOMERULAR FILTRATION RATE > 60.0 (>35); GLUCOSE, FASTING 168 MG/DL (70-100); POTASSIUM SERUM 3.8 MEQ/L (3.5-5.1); SODIUM LEVEL 142 MEQ/L (136-145); TOTAL PROTEIN 6.7 GM/DL (6.4-8.2)
[2020-03-13 10:41] LABS: ERYTHROCYTE SEDIMENTATION RATE 38 mm/hr (0-20)
== END ==
LOC: M LAB 09:17
PROVIDERS: ATTEND Orthopaedic Surgery
DX: Z01.818 Encounter for other preprocedural examination (principal); M16.11 Unilateral primary osteoarthritis, right hip

== ENCOUNTER 2020-03-16 07:25 | Inpatient (IN) | payer MEDICARE, BC ==
[2020-03-16] VITALS (7 sets, daily range): BP systolic 136–152; BP diastolic 72–81
[~2020-03-16] VITALS: Ht 167.6 cm; Wt 67.6 kg
[~2020-03-16 07:25] MED LIST changes: +LIDOCAINE 1% MDV 20ML VIAL SQ PRN; -PERC5TAB12 PO
[2020-03-16] MEDS ORDERED: ceFAZolin SOD 2 GM in IV 1 EA IV ONE (08:30)
[2020-03-16] MEDS ORDERED: LR 1,000 ML IV ONE (08:30)
[2020-03-16] MEDS ORDERED: fentaNYL 100 MCG/2 ML INJECTION (J3010) As Ordered ONE (08:33)
[2020-03-16] MEDS ORDERED: propofoL 500 MG/50 ML VIAL As Ordered ONE (08:34)
[2020-03-16] MEDS ORDERED: LIDOCAINE 2% 100MG/5ML SDV (FOR ANES.) As Ordered ONE (08:36)
[2020-03-16] MEDS ORDERED: ONDANSETRON 4MG/2ML VIAL As Ordered ONE (08:36)
[2020-03-16] MEDS ORDERED: BUPIVACAINE/DEXTROSE 0.75% 2 ML AMP As Ordered ONE (08:42)
[2020-03-16] MEDS ORDERED: EPINEPHrine INJ 1 MG/ML 1ML AMP As Ordered ONE (09:42)
[2020-03-16] MEDS ORDERED: TRANEXAMIC ACID 100 MG/ML 10ML VIAL As Ordered ONE (09:42)
[2020-03-16] MEDS ORDERED: ceFAZolin 1GM VIAL (J0690 PER 500MG) As Ordered ONE (09:42)
[2020-03-16] MEDS ORDERED: BUPIVACAINE LIPOSOME/PF 1.3% 20ML VIAL (13.3MG/ML)(EXPAREL)(C9290 PER1MG) As Ordered ONE (09:42)
--- NOTE | 2020-03-16 10:13 | IPN ---
DATE: 03/16/2020 Patient seen and examined. He wishes to go ahead with a right total hip arthroplasty and was re-consented. He understands the nature of this, the risks of bleeding, infection, damage to nerves, vessels, persistent pain, wear loosening, dislocation, leg length inequality, blood clots, medical problems, , among others. He understands he is at higher risk due to his age. Plan on proceeding with a right total hip arthroplasty.
[2020-03-16] MEDS ORDERED: ePHEDrine SULFATE 25 MG/5 ML(5MG/ML) SYRINGE As Ordered ONE (10:40)
[2020-03-16] MEDS ORDERED: PHENYLephrine HCL 500 MCG/5 ML (100MCG/ML) SYRINGE (J2370) As Ordered ONE (10:44)
[2020-03-16] MEDS ORDERED: ONDANSETRON 4MG/2ML VIAL IV PRN ×2 (12:30→12:45)
[2020-03-16] MEDS ORDERED: MORPHINE 4 MG/ML 1ML VIAL/SYRINGE (J2270) IV PRN (12:30)
[2020-03-16] MEDS ORDERED: PERCOCET 5MG/325MG TAB PO PRN ×2 (12:30→17:15)
[2020-03-16] MEDS ORDERED: MORPHINE 2 MG/ML 1ML VIAL (J2270) IV PRN (12:30)
[2020-03-16] MEDS ORDERED: ACETAMINOPHEN TAB 650MG DOSE (2X325MG) PO PRN (12:30)
[2020-03-16] MEDS ORDERED: LR 1,000 ML IV SCH ×2 (12:30→12:45)
[2020-03-16] MEDS ORDERED: fentaNYL 100 MCG/2 ML INJECTION (J3010) IV PRN (12:45)
--- NOTE | 2020-03-16 14:06 | REP ---
REASON: Status post THR. A total hip prosthesis is seen, the femoral and acetabular components of which are well seen and well approximated. The alignment is near anatomical. There is expected postoperative soft tissue swelling. There is a skin staple line seen laterally. Electronically Signed by Richi Mcleod DO 03/16/2020 04:12 P
[2020-03-16] MEDS: ceFAZolin SOD 2 GM in IV 1 EA IV SCH (18:07)
[2020-03-16] MEDS: ROSUVASTATIN 10 MG TAB (CRESTOR) PO SCH (21:10)
[2020-03-16] MEDS: BRIMONIDINE 0.15% OPHTH SOLN 5 ML OU SCH (21:10)
[2020-03-16] MEDS: PERCOCET 5MG/325MG TAB PO PRN (21:10)
[2020-03-16] MEDS: ISOSORBIDE MON. (IMDUR) 60 MG XR TAB PO SCH (21:11)
--- NOTE | 2020-03-16 22:42 | CR ---
DATE OF CONSULTATION: 03/16/2020 REASON FOR CONSULT: Medical management of chronic medical problems. CHIEF COMPLAINT: Right hip open reduction internal fixation (ORIF). HISTORY OF THE PRESENT ILLNESS: An 89-year-old male with a history of sick sinus syndrome, status post pacemaker in 2015, [employer]tr[employer], coronary artery disease, six stents and coronary artery bypass graft (CABG), reflux, prostate cancer, status post resection, glaucoma, paroxysmal atrial fibrillation - on chronic Eliquis, status post ORIF with no postop complications, seen in recovery with no complaints of pain. Patient has no chest pain, pressure, tightness, lightheadedness, dizziness, fever, chills, cough, dysuria, urgency, frequency, polyuria, polyphagia, weight gain, weight changes. No other complaints. PAST MEDICAL HISTORY: Paroxysmal AFib Obesity glaucoma gerd prostate ca with resection sick sinus syndrome pacer 2015 CAD CABG stent x 5 symptomatic anemia near syncope due to anemia PAST SURGICAL HISTORY: CABG coronary stents x5 prostate cancer resection pacemaker inguinal hernia x 2 appy colon polyp resection partial colectomy and reanastamosis HOME MEDICATIONS: pls see chart ALLERGIES: pls see chart SOCIAL HISTORY: , lives with . coffee, social ETOH, retired FAMILY HISTORY: father cva, cad, brother cad, in his 50's sister colon cancer, REVIEW OF SYSTEMS:Per HPI. 12point systems review otherwise negative PHYSICAL EXAMINATION: VITALS: Temperature 97.3, pulse 69, respiratory rate 16, blood pressure is 150/70, 100% on room air. Generally, patient looks younger than his stated age, awake, alert, oriented, answering questions appropriately, slightly hard of hearing. No jugular venous distention (JVD) or thyromegaly. Dry mucous membranes. Lungs are clear to auscultation. No wheezing, rales or rhonchi. Heart: S1, S2, sinus. Abdomen is soft, nontender, nondistended. Right hip: Postoperative changes. Dressing is clean and dry. Extremities: No cyanosis or clubbing. Patient has not regained sensation yet post-anesthesia, still in recovery room. LABORATORY DATA: 03/13/2020 laboratory data has been reviewed. Repeat CBC, metabolic panel have not been checked. IMAGING STUDIES: Hip x-ray 03/16/2020: Postop soft tissue swelling, total hip prosthesis, the femoral and acetabular components of which are well seen and well approximated. Skin staple line seen laterally. ASSESSMENT AND PLAN: This is an 89-year-old with a history of coronary artery disease, stent and CABG, sick sinus syndrome, status post pacemaker with [employer], prostate cancer with resection, reflux, glaucoma, paroxysmal atrial fibrillation - on chronic Eliquis, partial colectomy with re-anastomosis with colonic polyp resection, status post right hip due to severe osteoarthritis. CURRENT ISSUES ARE FOLLOWS: 1. Total hip prosthesis on the right. Postop management per orthopedic surgery, pain control and bowel regimen. Resumes Xarelto 10 mg daily. Perioperative antibiotics with cefazolin, on lactated Ringer's. Now, pain control is IV morphine, oxycodone if needed. Patient says that he does well with trazodone. 2. Hypertension, uncontrolled due to pain. May resume his home medication, isosorbide. 3. Dyslipidemia, on chronic rosuvastatin. 4. History of coronary artery disease. Stent and CABG. On isosorbide, rosuvastatin and chronic Lasix. 5. Reflux, on omeprazole. 6. History of paroxysmal atrial fibrillation. Currently rate controlled. May resume on home dose of Eliquis 10 mg daily. MTDD
[2020-03-17 02:00] VITALS: BP 136/72
[2020-03-17] MEDS: PERCOCET 5MG/325MG TAB PO PRN ×3 (03:03→14:07)
[2020-03-17] MEDS: ceFAZolin SOD 2 GM in IV 1 EA IV SCH (03:03)
[2020-03-17 05:55] LABS: HEMATOCRIT 30.9 % (42.0-52.0); HEMOGLOBIN 10.3 g/dl (13.5-17.5); MEAN CORPUSCULAR HGB CONC 33.3 g/dl (32.0-36.5); PLATELET COUNT, AUTOMATED 164 10^3/uL (150-450); RED BLOOD COUNT 3.12 10^6/uL (4.30-6.10); WHITE BLOOD COUNT 5.9 10^3/uL (4.0-10.0)
[2020-03-17 06:00] VITALS: BP 115/64
[2020-03-17] MEDS ORDERED: PERC5TAB12 PO (07:29)
[2020-03-17] MEDS: FUROSEMIDE 20 MG TAB PO SCH (08:19)
[2020-03-17] MEDS: MIRALAX *UNIT DOSE* 17GM PACKET PO SCH (08:19)
[2020-03-17] MEDS: MOM 30ML SUSPENSION UDC PO SCH (08:19)
[2020-03-17] MEDS: OMEPRAZOLE 20 MG CAP PO SCH (08:19)
[2020-03-17] MEDS: MULTIVITAMINS/MINERALS THERAP 1 TAB PO SCH (08:19)
[2020-03-17] MEDS: ISOSORBIDE MON. (IMDUR) 60 MG XR TAB PO SCH ×2 (08:19→21:49)
[2020-03-17] MEDS: BRIMONIDINE 0.15% OPHTH SOLN 5 ML OU SCH ×3 (08:20→21:49)
[2020-03-17 10:00] VITALS: BP 114/64
[2020-03-17 14:00] VITALS: BP 161/75
[2020-03-17] MEDS: RIVAROXABAN 10 MG TAB (XARELTO) PO SCH (18:37)
[2020-03-17] MEDS: ROSUVASTATIN 10 MG TAB (CRESTOR) PO SCH (21:49)
[2020-03-17] MEDS: LR 1,000 ML IV SCH (21:49)
[2020-03-17 22:00] VITALS: BP 120/67
[2020-03-18 06:00] VITALS: BP 121/64
[2020-03-18 06:08] LABS: HEMATOCRIT 29.5 % (42.0-52.0); HEMOGLOBIN 9.5 g/dl (13.5-17.5); MEAN CORPUSCULAR HEMOGLOBIN 32.4 pg (27.0-33.0); MEAN CORPUSCULAR HGB CONC 32.2 g/dl (32.0-36.5); MEAN CORPUSCULAR VOLUME 100.7 fl (80.0-96.0); PLATELET COUNT, AUTOMATED 148 10^3/uL (150-450); RED BLOOD COUNT 2.93 10^6/uL (4.30-6.10); WHITE BLOOD COUNT 7.5 10^3/uL (4.0-10.0)
[2020-03-18 06:36] LABS: BLOOD UREA NITROGEN 23 MG/DL (7-18); CARBON DIOXIDE LEVEL 28 MEQ/L (21-32); CHLORIDE LEVEL 106 MEQ/L (98-107); CREATININE FOR GFR 0.95 MG/DL (0.70-1.30); GLOMERULAR FILTRATION RATE > 60.0 (>35); GLUCOSE, FASTING 120 MG/DL (70-100); POTASSIUM SERUM 5.1 MEQ/L (3.5-5.1); SODIUM LEVEL 139 MEQ/L (136-145)
[2020-03-18] MEDS: ACETAMINOPHEN 500 MG TAB PO SCH ×3 (07:00→20:57)
[2020-03-18] MEDS: OMEPRAZOLE 20 MG CAP PO SCH (08:28)
[2020-03-18] MEDS: FUROSEMIDE 20 MG TAB PO SCH (08:29)
[2020-03-18] MEDS: MOM 30ML SUSPENSION UDC PO SCH (08:29)
[2020-03-18] MEDS: MULTIVITAMINS/MINERALS THERAP 1 TAB PO SCH (08:29)
[2020-03-18] MEDS: MIRALAX *UNIT DOSE* 17GM PACKET PO SCH ×2 (08:29→09:34)
[2020-03-18] MEDS: PERCOCET 5MG/325MG TAB PO PRN (08:29)
[2020-03-18] MEDS: ISOSORBIDE MON. (IMDUR) 60 MG XR TAB PO SCH ×2 (08:29→20:58)
[2020-03-18] MEDS ORDERED: BISACODYL 10 MG SUPP PR SCH (09:00)
--- NOTE | 2020-03-18 09:15 | RO ---
DATE OF PROCEDURE: 03/16/2020 PREOPERATIVE DIAGNOSIS: Right hip osteoarthritis. POSTOPERATIVE DIAGNOSIS: Right hip osteoarthritis. PROCEDURE: Right total hip arthroplasty using a Calvert size 8 high offset with a 58 acetabular component and a 40 +1.5 head. SURGEON: Alex Rincon MD SECOND OFFICER: RICHY Simmons ANESTHESIA: Spinal. ESTIMATED BLOOD LOSS: 200. COMPLICATIONS: None. INDICATIONS: This is an 89-year-old gentleman's who has had gradually worsening right hip pain, severe arthritis noted and he wished to go ahead with surgical treatment. Preop clearance was obtained. DESCRIPTION OF PROCEDURE: The patient was taken to the operating room, placed in supine position. After spinal anesthesia was induced, we then placed him in a left lateral decubitus position on the [place] positioner. All areas were padded appropriately. We then prepped and draped the hip in the usual sterile fashion. Time-out was performed and a longitudinal incision was made over the lateral aspect of the hip. Sharp dissection was carried down through subcutaneous tissue. Controlled hemostasis with a cautery. I incised the fascia natacha and then divided the anterior 40% of the abductor off of the hip gradually exposing the femoral neck and down to the lesser trochanter. We then dislocated the hip without much difficulty. I then used a canal initiating reamer, the canal finding reamer, lateralizing reamer and then sequentially reamed up to a size 9, which had a good bony purchase. I then cut the neck cut at about three-quarters of a fingerbreadth up from the less lesser trochanter. He had severe arthritis. The head was removed. I then prepared the acetabulum. anterior and posterior retractors were placed. Soft tissue was removed from around the acetabulum, which was fairly copious, and it was evident that I could medialize probably 0.5 cm. I then sequentially reamed up to a size 57, which had good concentric reaming and good bleeding bone. I did have to curette and bone graft a small cyst. I then placed the 58 in what I felt was appropriate anteversion horizontal tilt. The acetabular liner was inserted, impacted in place and then I prepared the femoral component and broached up to a size 8, which had good fit and fill. There was no need for planing. I then placed the high offset 1.5 head and neck combination followed by the +5 and he was a little bit unstable in flexion internal rotation. I had also removed any osteophytes. Once the trial components had been use, I felt as though the soft tissue tension was appropriate but that I needed to change the position of the cup. So, I removed the liner and then redirected the cup in a little bit more anteversion again using the guide. This seemed to match his anatomy quite well and impacted it back down in place. Placed a trial cup with 40 size ball and then re-trialed the components with the 1.5 high offset 40 ball and excellent stability and soft tissue tension was noted. He had excellent stability in flexion internal rotation, extension external rotation. I then removed the trial components. Irrigated copiously. Placed the apex hole eliminator. Impacted in the actual liner a size 58 x 40. Made sure it was well seated. Impacted in the 8 high offset Calvert stem. Made sure this was well seated. Dried the taper. Placed the 1.5, 40 ball. Impacted it in place. Made sure that was seated. Then reduced the hip. Put the hip through range of motion. Excellent stability and soft tissue tension was noted. I had irrigated multiple times up to this point. I again copiously irrigated. Placed the tranexamic acid (TXA) and the Exparel in the deep tissues. Repaired the minimus with #1 Vicryl suture and the abductor with #1 Vicryl suture with some stitches being placed through the bone. Excellent repair was noted. Although, his tissues were a little bit atrophied I think partially age-related. I then irrigated. Closed the fascia with #1 Vicryl suture in a running Stratafix suture in both directions. Irrigated. Closed the subcu with # 2-0 Vicryl and the skin with ari. Sterile dressing was applied. He was taken to recovery room in stable condition. There were no known complications. The plan will be routine postop. The child life assistant was instrumental in holding retractors and assisting and reducing and dislocating the hip and assisting in wound closure.
[2020-03-18] MEDS ORDERED: traMADol 50 MG TAB PO PRN (09:30)
[2020-03-18] MEDS: BRIMONIDINE 0.15% OPHTH SOLN 5 ML OU SCH ×3 (09:34→20:57)
[2020-03-18] MEDS ORDERED: TRAM50TA2 PO (09:47)
[2020-03-18] MEDS ORDERED: ACET160S3 PO (09:47)
[2020-03-18] MEDS: LR 1,000 ML IV SCH (10:36)
[2020-03-18] MEDS: BISACODYL 10 MG SUPP PR SCH ×2 (10:37→20:48)
[2020-03-18 11:36] LABS: APPEARANCE, URINE HAZY (CLEAR); BACTERIA, URINE AUTO NEGATIVE (NEGATIVE); BILIRUBIN, URINE AUTO NEGATIVE (NEGATIVE); BLOOD, URINE BLOOD 1+ (NEGATIVE); COLOR, URINE AMBER (YELLOW); GLUCOSE, URINE (UA) AUTO NEGATIVE (NEGATIVE); KETONE, URINE AUTO TRACE mg/dL (NEGATIVE); LEUKOCYTE ESTERASE, URINE AUTO NEGATIVE (NEGATIVE); MUCUS, URINE SMALL (NEGATIVE); NITRITE, URINE AUTO NEGATIVE (NEGATIVE); PROTEIN, URINE AUTO 1+ mg/dL (NEGATIVE); RBC, URINE AUTO 10 /HPF (0-3); SPECIFIC GRAVITY URINE AUTO 1.028 (1.002-1.035); SQUAMOUS EPITHELIAL CELL UR AU 0 /HPF (0-6); UROBILINOGEN, URINE AUTO 0.2 mg/dL (0.0-2.0); WBC, URINE AUTO 2 /HPF (0-3)
[2020-03-18 14:00] VITALS: BP 139/69
[2020-03-18] MEDS: RIVAROXABAN 10 MG TAB (XARELTO) PO SCH (17:36)
[2020-03-18] MEDS: ROSUVASTATIN 10 MG TAB (CRESTOR) PO SCH (20:58)
[2020-03-18 22:00] VITALS: BP 139/78
[2020-03-19] MEDS: LR 1,000 ML IV SCH ×2 (00:38→14:44)
[2020-03-19] MEDS: ACETAMINOPHEN 500 MG TAB PO SCH ×3 (05:56→21:45)
[2020-03-19 06:00] VITALS: BP 135/75
[2020-03-19 07:19] LABS: HEMATOCRIT 29.5 % (42.0-52.0); HEMOGLOBIN 9.8 g/dl (13.5-17.5); MEAN CORPUSCULAR HEMOGLOBIN 33.7 pg (27.0-33.0); MEAN CORPUSCULAR HGB CONC 33.2 g/dl (32.0-36.5); MEAN CORPUSCULAR VOLUME 101.4 fl (80.0-96.0); PLATELET COUNT, AUTOMATED 146 10^3/uL (150-450); RED BLOOD COUNT 2.91 10^6/uL (4.30-6.10); WHITE BLOOD COUNT 7.1 10^3/uL (4.0-10.0)
[2020-03-19] MEDS: ISOSORBIDE MON. (IMDUR) 60 MG XR TAB PO SCH ×2 (08:17→21:45)
[2020-03-19] MEDS: MIRALAX *UNIT DOSE* 17GM PACKET PO SCH (08:17)
[2020-03-19] MEDS: MULTIVITAMINS/MINERALS THERAP 1 TAB PO SCH (08:17)
[2020-03-19] MEDS: FUROSEMIDE 20 MG TAB PO SCH (08:17)
[2020-03-19] MEDS: OMEPRAZOLE 20 MG CAP PO SCH (08:17)
[2020-03-19] MEDS: BRIMONIDINE 0.15% OPHTH SOLN 5 ML OU SCH ×3 (08:17→21:44)
[2020-03-19] MEDS: MOM 30ML SUSPENSION UDC PO SCH (08:17)
[2020-03-19] MEDS: BISACODYL 10 MG SUPP PR SCH ×2 (08:18→21:00)
[2020-03-19 09:49] LABS: ALBUMIN 2.4 GM/DL (3.2-5.2); ALT/SGPT 14 U/L (12-78); BILIRUBIN,TOTAL 0.7 MG/DL (0.2-1.0); BLOOD UREA NITROGEN 24 MG/DL (7-18); CALCIUM LEVEL 8.1 MG/DL (8.8-10.2); CARBON DIOXIDE LEVEL 27 MEQ/L (21-32); CHLORIDE LEVEL 105 MEQ/L (98-107); GLOMERULAR FILTRATION RATE > 60.0 (>35); GLUCOSE, FASTING 176 MG/DL (70-100); SODIUM LEVEL 137 MEQ/L (136-145); TOTAL PROTEIN 5.9 GM/DL (6.4-8.2)
[2020-03-19 14:00] VITALS: BP 132/75
[2020-03-19] MEDS: RIVAROXABAN 10 MG TAB (XARELTO) PO SCH (17:41)
--- NOTE | 2020-03-19 20:37 | IPNPDOC ---
Date Seen The patient was seen on 03/19/20. Progress Note SUBJECTIVE: Borderline fever at 100.2 overnight. WBC wnl, UA neg. Encouraged to use IS Q2 hours. Denies SOB, chills, n/v/d, increased right hip pain. OBJECTIVE: VITAL SIGNS: Please see below PHYSICAL EXAMINATION: CONSTITUTIONAL: No acute distress, sitting up at bedside chair , AAO x 3, very pleasant EYES: PERRLA, EOM intact HENT, MOUTH: Normocephalic, atraumatic, moist mucous membranes NECK: SUPPLE, no JVD, no lymphadenopathy, no carotid bruit CV: Regular rate and rhythm, S1S2 normal, no murmurs/rubs/gallops RESPIRATORY: Clear to auscultation bilaterally, no rales/rhonchi/wheezes GI: BS positive in 4 quadrants, soft, nontender, nondistended, no rebound or guarding, no organomegaly : Deferred MUSCULOSKELETAL: Normal ROM. No cyanosis, clubbing, swelling, joint deformity, extremity edema INTEGUMENTARY: Right hip incision appears well healing, no increased erythema, tenderness to palpation. No no rashes, no lesions, no erythema NEUROLOGIC: Cranial Nerves II-XII are intact, no focal deficits PSYCHIATRIC: Mood and affect are normal CURRENT MEDICATIONS: Please see below LABORATORY DATA: Please see below IMAGING: No new imaging ASSESSMENT: 89 y/o M admitted for right hip OA s/p total right hip arthroplasty. PLAN: 1. Right hip osteoarthritis s/p total right hip arthroplasty. Borderline fevers, possibly atelectasis. UA neg, LA wnl. Incision appears clean, WBC wnl, leg nontender. C/w current pain regimen, xarelto, PT/OT, bowel regimen. Orthopedic surgery primary. 2. HTN. STable. C/w home medications. 3. HLD. C/w statin. 4. Hx of CAD. Denies chest pain, diaphoresis, shortness of breath. C/w isosorbide, statin, lasix. 5. GERD. PPI. 6. Hx of paroxysmal atrial fibrillation. Rate controlled. C/w AC. 7. DVT px. Xarelto VS, I&O, 24H, Fishbone Vital Signs/I&O Vital Signs Date Time Temp Pulse Resp B/P (MAP) Pulse Ox O2 Delivery O2 Flow Rate FiO2 03/19/20 14:00 98.1 78 16 132/75 (94) 95 03/19/20 06:00 Room Air 03/17/20 10:00 2.0 I&O- Last 24 Hours up to 6 AM 03/19/20 06:00 Intake Total 3151 ml Output Total 350 ml Balance 2801 ml Laboratory Data 24H LABS Laboratory Tests 2 03/19/20 06:29: Nucleated Red Blood Cells % (auto) 0.0 03/19/20 08:29: Anion Gap 5L, Glomerular Filtration Rate > 60.0, Lactic Acid Level 1.5, Calcium Level 8.1L, Total Bilirubin 0.7, Aspartate Amino Transf (AST/SGOT) 28, Alanine Aminotransferase (ALT/SGPT) 14, Alkaline Phosphatase 52, Total Protein 5.9L, Albumin 2.4L, Albumin/Globulin Ratio 0.7 CBC/BMP Laboratory Tests 03/19/20 06:29 03/19/20 08:29 Current Medications Current Medications Medications (Trade) Dose Ordered Sig/Chava Route PRN Reason Start Time Stop Time Status Last Admin Dose Admin Acetaminophen (Tylenol Tab) 650 mg Q4H PRN PO TEMPERATURE, PAIN LEVEL 1-4 03/16/20 12:30 03/18/20 09:41 DC 03/17/20 21:49 Acetaminophen (Tylenol Tab) 1,000 mg Q8H PO 03/18/20 06:00 03/19/20 21:45 Bisacodyl (Dulcolax Suppository) 10 mg BID UT 03/18/20 09:00 03/18/20 10:37 Bisacodyl (Dulcolax Suppository) 10 mg BID UT 03/18/20 09:00 Cancel Brimonidine Tartrate (Alphagan P 0.15%) 1 drop TID OU 03/16/20 21:00 03/19/20 21:44 Cefazolin Sodium/ Dextrose 2 gm/IV Miscellaneous Supplies 50 ml @ 75 mls/hr Q8H IV 03/16/20 18:00 03/17/20 02:39 DC 03/17/20 03:03 Fentanyl Citrate (Sublimaze) 25 mcg Q5MP PRN IV PAIN LEVEL 5-10 03/16/20 12:45 03/16/20 13:45 DC Furosemide (Lasix) 20 mg DAILY PO 03/17/20 09:00 03/19/20 08:17 Isosorbide Mononitrate (Imdur) 60 mg BID PO 03/16/20 21:00 03/19/20 21:45 Lactated Ringer's 1,000 ml @ 75 mls/hr [id number] IV 03/16/20 12:30 03/17/20 03:08 DC 03/16/20 14:41 Lactated Ringer's 1,000 ml @ 75 mls/hr [id number] IV 03/17/20 21:45 03/19/20 18:24 DC 03/19/20 14:44 Lactated Ringer's 1,000 ml @ 100 mls/hr Q10H IV 03/16/20 12:45 03/16/20 13:45 DC 03/16/20 11:43 Lidocaine HCl (LIDOCAINE 1% MDV 20ml) 0.1 ml ONCE PRN SQ DISCOMFORT BEFORE IV START 03/16/20 06:00 03/16/20 12:27 DC Magnesium Hydroxide (Milk Of Magnesia) 30 ml DAILY PO 03/17/20 09:00 03/19/20 08:17 Morphine Sulfate (Morphine Sulfate Inj) 2 mg Q2H PRN IV PAIN LEVEL 4-7 03/16/20 12:30 03/17/20 06:17 DC Morphine Sulfate (Morphine Sulfate Inj) 3 mg Q2H PRN IV PAIN LEVEL 8-10 03/16/20 12:30 03/17/20 06:17 DC Multivitamins (Theragram-M) 1 tab DAILY PO 03/17/20 09:00 03/19/20 08:17 Omeprazole (PriLOSEC) 40 mg DAILY PO 03/17/20 09:00 03/19/20 08:17 Ondansetron HCl (ZOFRAN INJection) 4 mg Q4HP PRN IV NAUSEA OR VOMITING 03/16/20 12:45 03/16/20 13:45 DC Ondansetron HCl (ZOFRAN INJection) 4 mg Q6H PRN IV NAUSEA 03/16/20 12:30 Oxycodone/ Acetaminophen (Percocet 5mg/ 325mg Tablet) 1 tab Q4HP PRN PO MILD/MODERATE PAIN (PS 1-7) 03/16/20 17:15 03/18/20 09:41 DC Oxycodone/ Acetaminophen (Percocet 5mg/ 325mg Tablet) 2 tab Q4HP PRN PO SEVERE PAIN (PS 8-10) 03/16/20 17:15 03/18/20 09:41 DC 03/18/20 08:29 Oxycodone/ Acetaminophen (Percocet 5mg/ 325mg Tablet) 2 tab Q6H PRN PO PAIN LEVEL 7-10 03/16/20 12:30 03/16/20 17:09 DC 03/16/20 14:56 Polyethylene Glycol (Miralax) 1 pkt DAILY PO 03/17/20 09:00 03/19/20 08:17 Rivaroxaban (Xarelto) 10 mg DAILY@18 PO 03/17/20 18:00 03/19/20 17:41 Rosuvastatin Calcium (Crestor) 20 mg DAILY@2100 PO 03/16/20 21:00 03/19/20 21:44 Tramadol HCl (Ultram) 50 mg Q4HP PRN PO MODERATE PAIN (PS 5-7) 03/18/20 09:30 Allergies Coded Allergies: No Known Allergies (Verified , 12/16/19) Vandana Christiansen MD Mar 19, 2020 20:37
[2020-03-19] MEDS: ROSUVASTATIN 10 MG TAB (CRESTOR) PO SCH (21:44)
[2020-03-19 22:00] VITALS: BP 138/78
[2020-03-20] MEDS: ACETAMINOPHEN 500 MG TAB PO SCH (05:55)
[2020-03-20 06:00] VITALS: BP 133/66
[2020-03-20 07:12] LABS: HEMATOCRIT 28.2 % (42.0-52.0); HEMOGLOBIN 9.4 g/dl (13.5-17.5); MEAN CORPUSCULAR HEMOGLOBIN 33.3 pg (27.0-33.0); MEAN CORPUSCULAR HGB CONC 33.3 g/dl (32.0-36.5); PLATELET COUNT, AUTOMATED 178 10^3/uL (150-450); RED BLOOD COUNT 2.82 10^6/uL (4.30-6.10); WHITE BLOOD COUNT 6.6 10^3/uL (4.0-10.0)
[2020-03-20 07:30] LABS: BLOOD UREA NITROGEN 19 MG/DL (7-18); CARBON DIOXIDE LEVEL 27 MEQ/L (21-32); CHLORIDE LEVEL 106 MEQ/L (98-107); CREATININE FOR GFR 0.71 MG/DL (0.70-1.30); GLOMERULAR FILTRATION RATE > 60.0 (>35); GLUCOSE, FASTING 108 MG/DL (70-100); POTASSIUM SERUM 4.2 MEQ/L (3.5-5.1); SODIUM LEVEL 138 MEQ/L (136-145)
[2020-03-20] MEDS: MIRALAX *UNIT DOSE* 17GM PACKET PO SCH (10:07)
[2020-03-20] MEDS: MOM 30ML SUSPENSION UDC PO SCH (10:08)
[2020-03-20 10:09] VITALS: BP 122/73
[2020-03-20] MEDS: OMEPRAZOLE 20 MG CAP PO SCH (10:09)
[2020-03-20] MEDS: MULTIVITAMINS/MINERALS THERAP 1 TAB PO SCH (10:09)
[2020-03-20] MEDS: ISOSORBIDE MON. (IMDUR) 60 MG XR TAB PO SCH (10:09)
[2020-03-20] MEDS: BRIMONIDINE 0.15% OPHTH SOLN 5 ML OU SCH (10:10)
[2020-03-20] MEDS: FUROSEMIDE 20 MG TAB PO SCH (10:10)
[2020-03-20] MEDS: BISACODYL 10 MG SUPP PR SCH (10:11)
== END 2020-03-20 12:40 | disposition home health service (06) | DRG 470 ==
LOC: M OR 07:25 → M MS5PR 13:45
PROVIDERS: ADMIT Orthopaedic Surgery; ATTEND Orthopaedic Surgery
PROC: 0SRB02Z Replacement of Left Hip Joint with Metal on Polyethylene Synthetic Substitute, Open Approach (ICD-10-PCS; principal; 2020-03-16 09:25)
DX: M16.11 Unilateral primary osteoarthritis, right hip (principal); I10 Essential (primary) hypertension; E78.5 Hyperlipidemia, unspecified; I25.10 Atherosclerotic heart disease of native coronary artery without angina pectoris; Z95.5 Presence of coronary angioplasty implant and graft; K21.9 Gastro-esophageal reflux disease without esophagitis; I48.0 Paroxysmal atrial fibrillation; H40.9 Unspecified glaucoma; Z85.46 Personal history of malignant neoplasm of prostate; I49.5 Sick sinus syndrome; Z95.0 Presence of cardiac pacemaker; Z90.49 Acquired absence of other specified parts of digestive tract; Z86.010 Personal history of colon polyps; Z11.59 Encounter for screening for other viral diseases; Z79.01 Long term (current) use of anticoagulants; Z79.82 Long term (current) use of aspirin; Z79.899 Other long term (current) drug therapy; Z87.891 Personal history of nicotine dependence